=== PATIENT | male | born 1985 | race Caucasian/White ===

== ENCOUNTER 2023-01-02 14:02 | Outpatient (AMB) | payer OTHER, SELFPAY ==
--- NOTE | 2023-01-02 14:08 | MHC.OFFWIV ---
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 No chest pain or shortness of breath. Nausea but not vomitting. Last dose was at 10 am today. Allergies No Known Allergies Allergy (Unverified 01/02/23 14:12) HPI HPI Comments History of Present Illness Details [id number] 37 year old male presents w/ drowsieness reports that he took dayquil equate brand and nyquil for URI that has been going on for a few days. Just reporting congestion and fatigue/malaise was sent in by the [employer] because he was drowsy. He feels fine now he tells me just needs a doctors note. Denies CP, sob, nausea, vomiting, abd pain, rausch, vision changes, dizziness, weakness. He tells me this happens every time he takes DayQuil or NyQuil. No falls or head trauma PE - benign. Neuro nonfocal. This is likely drowsiness secondary to DayQuil/NyQuil. Likely URI. Unlikely PE, pneumonia. Plan COVID test. Educated patient on diagnosis and treatment plan, answered all question, patient verbalizes understanding. At this time patient will be discharged home, advised to return with new or worsening symptoms. Educated on worrisome signs and symptoms and when to return. At this time I feel comfortable discharge home. Review of Systems Const Details: Constitutional : No Weight loss, No Fever, No Chills, + Fatigue, + Malaise ENT/Mouth : No sore throat, No Rhinorrhea Eyes: No Eye Pain, No Swelling, No Redness Cardiovascular : No Chest Pain, No SOB, No Dyspnea on Exertion, No Orthopnea, No Edema, No Palpitations Respiratory : No Cough, No Sputum, No Wheezing Gastrointestinal : No Nausea, No Vomiting, No Diarrhea, No Constipation, No abdominal Pain, No Hematochezia, No Melena Genitourinary : No Dysuria, No Urinary Frequency, No Hematuria, Musculoskeletal : No joint pain, No Myalgias, No Joint Swelling Skin : No Skin Lesions, No rash Neuro : No Weakness, No Numbness, No Dizziness, No Headache Psych : No Anxiety/Panic, No Depression All other systems reviewed and are negative All systems reviewed & are unremarkable except as noted in HPI and below Physical Exam Vital Signs: vss Appearance: Alert.? Oriented X3.? No acute distress.? Head: Normocephalic, atraumatic, no step-offs or deformities Eyes: Pupils equal, round and reactive to light.? CVS: Normal heart rate and rhythm.? Pulses normal.? Respiratory: No respiratory distress.? Breath sounds normal.? Abdomen: Soft and nontender.? Skin: Skin warm and dry.? Normal skin color.? Normal skin turgor.? Extremities: No lower extremity edema.? No calf ttp. 5/5 strength to bilateral upper and lower extremities Neuro: Oriented X 3.? No motor deficit.? No sensory deficit. CN 2-12 intact Assessment & Plan Assessment & Plan (1) Viral illness: Code(s): B34.9 - Viral infection, unspecified Plan Take your medications as prescribed. If you were prescribed antibiotics today, it is important that you take your medication to their entirety, do not skip any doses, do not finish them early. Follow-up with your primary care provider this week. Return to the emergency department with new or worsening symptoms. Such as fevers, chills, chest pain, shortness of breath, nausea, vomiting, dizziness, headache, vision changes, lethargy In case of emergency call 911 Orders: Orders [facility] Covid-19 Ag Today B34.9 - Viral infection, unspecified Coding Level of Care Code Est Pt Level 3 (29021) Diagnoses Viral illness B34.9
[2023-01-02 14:13] VITALS: BP 108/70; PULSE 66; TEMP 36.6; O2SAT 98
== END 2023-01-02 14:19 | disposition home or self-care (01) ==
PROVIDERS: Visit Provider Physician Assistant
DX: B34.9 Viral infection, unspecified (principal)
CPT/HCPCS: 99051; 99213

== ENCOUNTER 2023-01-02 14:19 | Outpatient (REF) | payer OTHER, SELFPAY ==
[2023-01-02 14:48] LABS: Binax Now Covid-19 Ag Negative (Negative)
[2023-01-02 14:50] LABS: Binax Internal Control QC Valid
== END 2023-01-02 14:20 | disposition home or self-care (01) ==
LOC: HO.HMGCLDS 14:19
PROVIDERS: Visit Provider Physician Assistant
DX: B34.9 Viral infection, unspecified (principal)
CPT/HCPCS: 87811